=== PATIENT | male | born 1990 | race Two or more races ===

== ENCOUNTER 2022-08-31 03:08 | Emergency (ER) | payer OTHER ==
[2022-08-31] MEDS ORDERED: Tetracaine HCl/PF 0.5% 4 ML Bottle ONE (03:28)
[2022-08-31] MEDS ORDERED: Acetaminophen/HYDROcodone 325-5 MG Tab PO ONE (03:48)
[2022-08-31] MEDS ORDERED: Ibuprofen 600 MG Tab PO ONE (03:48)
[2022-08-31] MEDS ORDERED: Gentamicin 0.3% Ophth Soln 5 ML Bottle EYERT STA (03:49)
[2022-08-31] MEDS ORDERED: Diphtheria,Pertussis(Acell),Tetanus Vaccine 0.5 ML Syringe IM ONE (03:52)
[2022-08-31] MEDS ORDERED: Tetracaine HCl/PF 0.5% 4 ML Bottle EYERT ONE (04:10)
== END 2022-08-31 04:20 | disposition home or self-care (01) ==
LOC: MW.ED 03:08
DX: T15.01XA Foreign body in cornea, right eye, initial encounter (principal); Z23 Encounter for immunization
CPT/HCPCS: 65220; 90471; 90715; 99283; A9270

== ENCOUNTER 2022-11-14 17:34 | Emergency (ER) | payer SELFPAY ==
[2022-11-14] MEDS ORDERED: Tetracaine HCl/PF 0.5% 4 ML Bottle EYEBOTH ONE (17:52)
[2022-11-14] MEDS ORDERED: Erythromycin Base 0.5% Ophth Oint 1 GM Tube EYERT ONE (19:37)
== END 2022-11-14 19:51 | disposition home or self-care (01) ==
LOC: MW.ED 17:34
DX: S05.01XA Injury of conjunctiva and corneal abrasion without foreign body, right eye, initial encounter (principal); W22.09XA Striking against other stationary object, initial encounter
CPT/HCPCS: 99283; A9270; J3490